=== PATIENT | male | born 1990 | race African-American/Black ===

== ENCOUNTER 2021-04-30 16:06 | Emergency (ER) | payer OTHER ==
[~2021-04-30] VITALS: Ht 190.5 cm; Wt 109.1 kg
[2021-04-30 16:07] VITALS: BP 146/81
--- NOTE | 2021-04-30 19:22 | REP ---
INDICATION: laceration COMPARISON: None. TECHNIQUE: AP, lateral, bilateral oblique views right 3rd digit. FINDINGS: The osseous structures and joint spaces are intact and normal. There is no evidence for acute fracture or dislocation. Surrounding soft tissues are unremarkable. No subcutaneous emphysema or radiodense foreign body. IMPRESSION: No subcutaneous emphysema or foreign body. No osseous or intra-articular involvement appreciated. <Electronically signed by Nico Olmstead > 04/30/21 [id number]
[2021-04-30] MEDS ORDERED: DERMABOND TOPICAL SKIN ADHESIVE TOP ONE (20:30)
== END 2021-04-30 21:42 | disposition home or self-care (01) ==
LOC: M ED 16:06
DX: S61.212A Laceration without foreign body of right middle finger without damage to nail, initial encounter (principal); X58.XXXA Exposure to other specified factors, initial encounter; Y92.009 Unspecified place in unspecified non-institutional (private) residence as the place of occurrence of the external cause; Y93.89 Activity, other specified; Y99.9 Unspecified external cause status